=== PATIENT | male | born 1955 | race Caucasian/White ===

== ENCOUNTER → 2018-03-21 | Outpatient (CLI) | payer OTHER ==
--- NOTE | 2018-03-21 10:19 | PCVCIMAG ---
APPROVED REPORT Study performed: 03/21/2018 09:31:31 EXAM: Comprehensive 2D, Doppler, and color-flow Echocardiogram Patient Location: Echo lab Status: routine BSA: 1.93 HR: 64 bpmBP: 156/84 mmHg Rhythm: NSR Other Information Study Quality: Adequate Indications Pacemaker Cardiomyopathy ICD 2D Dimensions IVSd: 10.25 (7-11mm) LVDd: 50.13 mm PWd: 10.02 (7-11mm) LVDs: 36.48 (25-40mm) Left Atrium: 46.52 (27-40mm) Aortic Root: 31.52 mm LV Single Plane 4CH: 41.21 % LV Single Plane 2CH: 45.84 % Biplane EF: 43.8 % Volumes Left Atrial Volume (Systole) Single Plane 4CH: 87.00 mLSingle Plane 2CH: 81.63 mL LA ESV Index: 45.00 mL/m2 Aortic Valve AoV Peak Stephen.: 1.53 m/s AO Peak Gr.: 9.34 mmHgLVOT Max P.90 mmHg LVOT Max V: 0.99 m/s Mitral Valve E/A Ratio: 1.1 MV Decel. Time: 244.35 ms MV E Max Stpehen.: 0.65 m/s MV A Stephen.: 0.57 m/s IVRT: 117.65 ms Pulmonary Valve PV Peak Stephen.: 0.95 m/sPV Peak Gr.: 3.61 mmHg Pulmonary Vein P Vein S: 0.36 m/sP Vein A: 0.37 m/s P Vein D: 0.44 m/sP Vein A Dur.: 110.7 msec P Vein S/D Ratio: 0.82 Tricuspid Valve TR Peak Stephen.: 2.36 m/s TR Peak Gr.: 22.35 mmHg Left Ventricle The left ventricle is normal size. There is normal LV segmental wall motion. There is normal left ventricular wall thickness. Left ventricular systolic function is at the lower limits of normal LVEF 50%. The left ventricular diastolic function is normal. Right Ventricle The right ventricle is normal size. The right ventricular systolic function is normal. Pacemaker lead is present in the right ventricle. Atria Left atrium is moderately dilated. The right atrium size is normal. A pacemaker is seen in the right atrium consistent with history. Aortic Valve The aortic valve is normal in structure. No aortic regurgitation is present. There is no aortic valvular stenosis. Mitral Valve The mitral valve is normal in structure. There is no mitral valve regurgitation noted. No evidence of mitral valve stenosis. Tricuspid Valve The tricuspid valve is normal in structure. Trace tricuspid regurgitation with PAP of 30 mmHg. Pulmonic Valve The pulmonary valve is normal in structure. Trace pulmonic regurgitation. Great Vessels The aortic root is normal in size. IVC is normal in size and collapses >50% with inspiration. Pericardium There is no pericardial effusion. There is no pleural effusion. <Conclusion> Left ventricular systolic function is at the lower limits of normal There is normal LV segmental wall motion. LVEF 50%. The aortic valve is normal in structure. No aortic regurgitation or stenosis. The mitral valve is normal in structure. No mitral valve regurgitation Trace tricuspid regurgitation with pulmonary artery pressure of 30 mmHg. There is no pericardial effusion.
== END | disposition home or self-care (01) ==
LOC: PCVCIMAG 11:00
PROVIDERS: ATTEND Internal Medicine
DX: I42.9 Cardiomyopathy, unspecified (principal)
CPT/HCPCS: 93306

== ENCOUNTER → 2019-04-06 | Outpatient (CLI) | payer OTHER ==
--- NOTE | 2019-04-06 11:55 | PCVCIMAG ---
APPROVED REPORT Study performed: 04/06/2019 09:23:17 EXAM: Comprehensive 2D, Doppler, and color-flow Echocardiogram Patient Location: Echo lab Room #: 2Status: routine BSA: 1.93 HR: 60 bpmBP: 148/74 mmHg Rhythm: Pacemaker Other Information Study Quality: Adequate Risk Factors: Cardiac Risk Factors: Hyperlipidemia Indications Pacemaker Cardiomyopathy HX: cardiac arrest, implanted cardioverter-defibrilator 2D Dimensions IVSd: 8.67 (7-11mm)LVOT Diam: 22.14 (18-24mm) LVDd: 47.84 mm PWd: 8.95 (7-11mm) LVDs: 39.96 (25-40mm) Left Atrium: 36.02 (27-40mm) Aortic Root: 24.73 mm LV Single Plane 4CH: 49.68 % LV Single Plane 2CH: 55.45 % Biplane EF: 51.9 % Volumes Left Atrial Volume (Systole) Single Plane 4CH: 67.20 mLSingle Plane 2CH: 56.02 mL Biplane LA Volume: 63.00 mLLA ESV Index: 33.00 mL/m2 Aortic Valve AoV Peak Stephen.: 1.52 m/s AO Peak Gr.: 9.20 mmHgLVOT Max P.09 mmHg LVOT Max V: 0.88 m/s SHELLI Vmax: 2.23 cm2 Mitral Valve E/A Ratio: 1.0 MV Decel. Time: 151.38 ms MV E Max Stephen.: 0.53 m/s MV A Stephen.: 0.52 m/s Pulmonary Valve PV Peak Stephen.: 0.93 m/sPV Peak Gr.: 3.46 mmHg Tricuspid Valve TR Peak Stephen.: 2.27 m/s TR Peak Gr.: 20.57 mmHg TV Vmax: 0.76 m/sPA Pressure: 28.00 mmHg Left Ventricle The left ventricle is normal size. There is normal LV segmental wall motion. There is normal left ventricular wall thickness. Left ventricular systolic function is low normal. LVEF is 50-55%. Right Ventricle The right ventricle is normal size. The right ventricular systolic function is normal. Pacemaker lead is present in the right ventricle. Atria The left atrium size is normal. Pacemaker lead is present in the right atrium. Aortic Valve Aortic valve is trileaflet, mild sclerosis. No aortic regurgitation is present. There is no aortic valvular stenosis. Mitral Valve The mitral valve is normal in structure. There is no mitral valve regurgitation noted. No evidence of mitral valve stenosis. Tricuspid Valve The tricuspid valve is normal in structure. Trace to mild tricuspid regurgitation with a PA pressure of 28 mmHg. No pulmonary hypertension. Pulmonic Valve The pulmonary valve is normal in structure. There is no pulmonic valvular regurgitation. Great Vessels The aortic root is normal in size. Aortic arch is normal in caliber. Ascending aorta is not well visualized. IVC is normal in size and collapses >50% with inspiration. Pericardium There is no pericardial effusion. There is no pleural effusion. <Conclusion> Left ventricular systolic function is low normal. There is normal LV segmental wall motion. LVEF is 50-55%. Aortic valve is trileaflet, mild sclerosis. No aortic regurgitation or stenosis. The mitral valve is normal in structure. No mitral valve regurgitation. Trace to mild tricuspid regurgitation with a pulmonary artery pressure of 28 mmHg. There is no pericardial effusion.
== END | disposition home or self-care (01) ==
LOC: PCVCIMAG 09:02
PROVIDERS: ATTEND Internal Medicine
DX: I07.1 Rheumatic tricuspid insufficiency (principal); I46.9 Cardiac arrest, cause unspecified; E78.5 Hyperlipidemia, unspecified; Z95.810 Presence of automatic (implantable) cardiac defibrillator; Z79.82 Long term (current) use of aspirin; Z79.899 Other long term (current) drug therapy
CPT/HCPCS: 93306